=== PATIENT | male | born 1975 ===

== ENCOUNTER 2020-11-10 18:25 | Emergency (ER) | payer OTHER ==
[~2020-11-10] VITALS: Ht 175.3 cm; Wt 132.4 kg
[2020-11-10] MEDS ORDERED: VALSARTAN-HCTZ1 EAC3 (18:48)
[2020-11-10] MEDS ORDERED: HYDROCHLOROTHIA25 MG (18:48)
[2020-11-10] MEDS ORDERED: NORVASC10 MG (18:49)
== END 2020-11-10 21:29 | disposition home or self-care (01) ==
LOC: ER 18:25
DX: M94.0 Chondrocostal junction syndrome [Tietze] (principal)